=== PATIENT | male | born 1970 | race Caucasian/White ===

== ENCOUNTER 2020-07-11 16:51 | Emergency (ER) | payer SELFPAY ==
[~2020-07-11] VITALS: Ht 157.5 cm; Wt 77.0 kg
[2020-07-11] MEDS ORDERED: SODIUM CHLORIDE 0.9% 1,000 ML IV ONE ×2 (17:45→18:15)
[2020-07-11 18:06] LABS: BASOPHILS % 0.8 % (0.0-2.0); EOSINOPHILS % 1.7 % (0.0-5.0); HEMATOCRIT. 42.4 % (42.0-52.0); HEMOGLOBIN. 14.5 g/dL (14.0-18.0); LYMPHOCYTES % 26.3 % (20.0-50.0); MEAN CORPUSCULAR HEMOGLOBIN 31.6 pg (28.0-32.0); MEAN CORPUSCULAR VOLUME 92.3 fL (80.0-94.0); MEAN PLATELET VOLUME 8.8 fl (7.4-10.4); NEUTROPHILS % 64.2 % (40.0-76.0); PLATELET 258 x1000/uL (130-400); RED BLOOD CELL COUNT 4.59 mill/uL (4.7-6.1); RED CELL DISTRIBUTION WIDTH 13.4 % (11.6-14.6)
[2020-07-11 18:13] LABS: CHLORIDE 106 mEq/L (98-107)
[2020-07-11 18:37] LABS: ETHANOL BLOOD 397 mg/dL
[2020-07-11 22:54] VITALS: BP 109/68
== END 2020-07-11 23:00 | disposition home or self-care (01) ==
LOC: ER 16:51 → EDBD 16:51 → ER 23:00
DX: F10.129 Alcohol abuse with intoxication, unspecified (principal); Y90.8 Blood alcohol level of 240 mg/100 ml or more
CPT/HCPCS: 36415; 70450; 71045; 72125; 73030; 80053; 80307; 80320; 80329; 82962; 85025; 93005; 96360; 96361; 99285; J7030; G0480